=== PATIENT | female | born 1985 | race Caucasian/White ===

== ENCOUNTER 2018-08-02 10:49 | Emergency (ER) | payer OTHER ==
[~2018-08-02] VITALS: Ht 162.6 cm; Wt 66.7 kg
[2018-08-02] MEDS ORDERED: PRENA1 TRUE CO1 EACH (11:03)
[2018-08-02] MEDS ORDERED: FOLIC ACID0.4 MG (11:03)
== END 2018-08-02 18:38 | disposition home or self-care (01) ==
LOC: ER 10:49
DX: O20.0 Threatened abortion (principal)

== ENCOUNTER 2018-08-23 10:53 | Emergency (ER) | payer OTHER ==
[~2018-08-23] VITALS: Ht 160 cm; Wt 64.4 kg
[~2018-08-23 10:53] MED LIST: FOLIC ACID0.4 MG; PRENA1 TRUE CO1 EACH
== END 2018-08-23 15:29 | disposition home or self-care (01) ==
LOC: ER 10:53
DX: O20.0 Threatened abortion (principal)

== ENCOUNTER 2019-01-20 19:02 | Emergency (ER) | payer OTHER ==
[~2019-01-20] VITALS: Ht 160 cm; Wt 69.9 kg
== END 2019-01-20 22:33 | disposition home or self-care (01) ==
LOC: ER 19:02
DX: O23.33 Infections of other parts of urinary tract in pregnancy, third trimester (principal); Z3A.36 36 weeks gestation of pregnancy; J06.9 Acute upper respiratory infection, unspecified; R05 Cough; M54.89 Other dorsalgia; R07.0 Pain in throat

== ENCOUNTER 2019-02-08 09:35 | Inpatient (IN) | payer OTHER ==
[~2019-02-08] VITALS: Ht 160 cm; Wt 3.2 kg
== END 2019-02-11 15:52 | DRG 788 ==
LOC: OB/GYN 09:35 → LDR 09:35 → OB/GYN 14:57
PROVIDERS: Obstetrics & Gynecology; ADMIT Obstetrics & Gynecology
PROC: 0DNW0ZZ Release Peritoneum, Open Approach (ICD-10-PCS; 2019-02-08)
PROC: 4A1HXCZ Monitoring of Products of Conception, Cardiac Rate, External Approach (ICD-10-PCS; 2019-02-08)
PROC: 4A033R1 Measurement of Arterial Saturation, Peripheral, Percutaneous Approach (ICD-10-PCS; 2019-02-08)
PROC: 10D00Z1 Extraction of Products of Conception, Low, Open Approach (ICD-10-PCS; principal; 2019-02-08 11:00)
DX: O82 Encounter for cesarean delivery without indication (principal); O34.211 Maternal care for low transverse scar from previous cesarean delivery; O99.89 Other specified diseases and conditions complicating pregnancy, childbirth and the puerperium; N73.6 Female pelvic peritoneal adhesions (postinfective); Z3A.38 38 weeks gestation of pregnancy; Z37.0 Single live birth

== ENCOUNTER 2019-03-02 18:20 | Emergency (ER) | payer OTHER ==
[~2019-03-02] VITALS: Ht 160 cm; Wt 63.5 kg
== END 2019-03-03 01:36 | disposition home or self-care (01) ==
LOC: ER 18:20
DX: N30.80 Other cystitis without hematuria (principal); R10.31 Right lower quadrant pain

== ENCOUNTER 2019-03-24 04:49 | Inpatient (IN) | payer OTHER ==
[~2019-03-24] VITALS: Ht 160 cm; Wt 66.2 kg
[2019-03-24] MEDS ORDERED: MOTRIN (05:35)
[2019-03-24] MEDS ORDERED: AMOXICILLIN (05:35)
[2019-03-24] MEDS ORDERED: TORADOL (05:41)
[2019-03-25] MEDS ORDERED: MOTRIN IB200 MG (16:42)
[2019-03-25] MEDS ORDERED: AMOX1TAB5 (16:43)
[2019-03-25] MEDS ORDERED: KETO10TA2 (16:43)
== END 2019-03-26 11:22 | disposition home or self-care (01) | DRG 602 ==
LOC: ER 04:49 → OB/GYN 13:39
PROVIDERS: ADMIT Obstetrics & Gynecology
PROC: BW21Y0Z Computerized Tomography (CT Scan) of Abdomen and Pelvis using Other Contrast, Unenhanced and Enhanced (ICD-10-PCS; 2019-03-24)
PROC: 0W9F30Z Drainage of Abdominal Wall with Drainage Device, Percutaneous Approach (ICD-10-PCS; principal; 2019-03-25)
DX: L02.211 Cutaneous abscess of abdominal wall (principal); K65.1 Peritoneal abscess

== ENCOUNTER → 2021-05-19 | Outpatient (CLI) | payer OTHER ==
[~2021-05-19] MED LIST changes: +AMOX1TAB5; +AMOXICILLIN; +KETO10TA2; +MOTRIN; +MOTRIN IB200 MG; +TORADOL
== END | disposition home or self-care (01) ==
LOC: PRENATAL 07:57
PROVIDERS: ATTEND Obstetrics & Gynecology Maternal & Fetal Medicine
DX: O35.0XX1 Maternal care for (suspected) central nervous system malformation in fetus, fetus 1 (principal); O35.3XX1 Maternal care for (suspected) damage to fetus from viral disease in mother, fetus 1; O98.512 Other viral diseases complicating pregnancy, second trimester; Z36.89 Encounter for other specified antenatal screening; Z3A.24 24 weeks gestation of pregnancy

== ENCOUNTER 2021-07-10 13:38 | Outpatient (CLI) | payer OTHER | END 2021-07-10 15:00 | disposition home or self-care (01) | LOC: PRENATAL 13:38 | PROVIDERS: ATTEND Obstetrics & Gynecology Maternal & Fetal Medicine | DX: O26.849 Uterine size-date discrepancy, unspecified trimester (principal); O34.219 Maternal care for unspecified type scar from previous cesarean delivery ==